=== PATIENT | male | born 1940 | race Caucasian/White ===

== ENCOUNTER 2017-08-13 05:12 | Inpatient (IN) | payer OTHER ==
[2017-08-10 11:31] VITALS: BMI 28.5
[~2017-08-13] VITALS: Ht 185.4 cm; Wt 97.2 kg
[2017-08-13] VITALS (20 sets, daily range): BP systolic 94–151; BP diastolic 53–91; PULSE 80–132; RESP 11–20; Ht 185.4 cm; Wt 97.2 kg
[~2017-08-13 05:12] MED LIST: LANS30CA PO; TAMS-14 PO; VALS80TA2 PO
[2017-08-13] MEDS ORDERED: CEFAZOLIN 2 GM/50 ML (PMX) 50 ML IVPB SCH (05:30)
[2017-08-13] MEDS ORDERED: LACTATED RINGER'S 1,000 ML IV* SCH (05:33)
[2017-08-13] MEDS ORDERED: NEOSTIGMINE 3 MG/3 ML SYRINGE ONE (06:55)
[2017-08-13] MEDS ORDERED: PROPOFOL 20 ML ONE (06:55)
[2017-08-13] MEDS ORDERED: GLYCOPYRROLATE 0.4 MG INJ ONE (06:55)
[2017-08-13] MEDS ORDERED: LIDOCAINE 2% (SDV) 5 ML INJ ONE (06:55)
[2017-08-13] MEDS ORDERED: ROCURONIUM 50 MG INJ ONE (06:55)
[2017-08-13] MEDS ORDERED: SUCCINYLCHOLINE CHLORIDE 100 MG/5 ML SYG IV ONE (06:55)
[2017-08-13] MEDS ORDERED: MEPERIDINE 100 MG INJ ONE (06:56)
[2017-08-13] MEDS ORDERED: THROMBIN 5000 UNIT VIAL ONE (06:57)
[2017-08-13] MEDS ORDERED: BUPIVACAINE 0.25% (MPF) 10 ML 10 ML VIAL ONE (06:57)
[2017-08-13] MEDS ORDERED: GELATIN SIZE 100 SPONGE ONE (06:57)
[2017-08-13] MEDS ORDERED: POLYMYXIN/BACITRACIN 1L IRRIG ONE (06:57)
--- NOTE | 2017-08-13 06:57 | HPN ---
Date/Time of Note Date/Time of Note DATE: 08/13/17 TIME: 06:56 Interval H&P Admission Note Pt. seen H&P reviewed: No system changes LUIGI TORO MD Aug 13, 2017 06:57
[2017-08-13] MEDS ORDERED: SEVOFLURANE 15 MIN ONE (08:00)
[2017-08-13] MEDS ORDERED: EPHEDrine SULFATE 50 MG/5 ML SYG ONE (08:00)
--- NOTE | 2017-08-13 09:41 | RADRPT ---
PROCEDURE: XR Lumbar Spine one view. CLINICAL INDICATION: Low back pain. Intraoperative. TECHNIQUE: Prone portable cross-table lateral. COMPARISON: No prior studies are available for comparison. FINDINGS: For the purposes of this report, the last apparent true disc level is considered to be L5-S1. Based on this, the posterior Needle marker is are present at L2 spinous process level and L5 spinous proc ess level. There are severe degenerative changes throughout. IMPRESSION: 1. Intraoperative imaging as described above. RPTAT: QQ .Humberto Carrillo MD, MD Date Time Electronically viewed and signed by .Humberto Carrillo MD, on 08/13/2017 09:41 .R/
--- NOTE | 2017-08-13 09:42 | RADRPT ---
PROCEDURE: XR Lumbar Spine one view. CLINICAL INDICATION: Low back pain. Intraoperative. TECHNIQUE: Prone portable cross-table lateral. COMPARISON: No prior studies are available for comparison. FINDINGS: For the purposes of this report, the last apparent true disc level is considered to be L5-S1. Based on this, the posterior Surgical instruments are present overlying the L2, L3, L4, and L5 spinous pr ocesses. There are severe degenerative changes throughout. IMPRESSION: 1. Intraoperative imaging as described above. RPTAT: QQ .Humberto Carrillo MD, MD Date Time Electronically viewed and signed by .Humberto Carrillo MD, on 08/13/2017 09:41 .R/
[2017-08-13] MEDS ORDERED: ONDANSETRON 4 MG INJ ONE ×2 (09:54→10:53)
[2017-08-13] MEDS ORDERED: HYDROmorphONE (0.2 MG/ML) 10ML SYG IV ONE (10:47)
[2017-08-13] MEDS ORDERED: ZOLPIDEM 5 MG TAB PO PRN (11:00)
[2017-08-13] MEDS ORDERED: ACETAMINOPHEN 325 MG TAB PO PRN (11:00)
[2017-08-13] MEDS ORDERED: hydrALAzine 20 MG INJ IV PRN (11:00)
[2017-08-13] MEDS ORDERED: MIDAZOLAM 1 MG/ML 2 ML INJ IV PRN (11:00)
[2017-08-13] MEDS ORDERED: NACL 0.9% 3 ML SYG IV SCH (11:00)
[2017-08-13] MEDS ORDERED: AL HYDROX/MG HYDROX/SIMETH 30 ML CUP PO PRN (11:00)
[2017-08-13] MEDS ORDERED: EPHEDrine SULFATE 50 MG/5 ML SYG IV PRN (11:00)
[2017-08-13] MEDS ORDERED: ONDANSETRON 4 MG INJ IV PRN ×2 (11:00)
[2017-08-13] MEDS ORDERED: METOCLOPRAMIDE 10 MG INJ IV PRN (11:00)
[2017-08-13] MEDS ORDERED: HYDROmorphONE (0.2 MG/ML) 10ML SYG IV PRN ×3 (11:00)
[2017-08-13] MEDS ORDERED: OXYCODONE/ACETAMINOPHEN (5/325) TAB PO PRN ×2 (11:00)
[2017-08-13] MEDS ORDERED: DIAZEPAM 5 MG TAB PO PRN (11:00)
[2017-08-13] MEDS ORDERED: MEPERIDINE 25 MG INJ IV PRN (11:00)
[2017-08-13] MEDS ORDERED: TRIMETHOBENZAMIDE 100 MG/ML VIAL IM PRN (11:00)
[2017-08-13] MEDS ORDERED: LABETALOL HCL 20MG INJ IV PRN (11:00)
[2017-08-13] MEDS ORDERED: DIAZEPAM 5 MG/ML SYG IM PRN (11:00)
[2017-08-13] MEDS ORDERED: DIPHENHYDRAMINE 50 MG CAP PO PRN (11:00)
[2017-08-13] MEDS ORDERED: NALOXONE (0.4 MG/ML) INJ IV PRN (11:00)
[2017-08-13] MEDS ORDERED: PROCHLORPERAZINE 10 MG TAB PO PRN (11:00)
[2017-08-13] MEDS ORDERED: CEPASTAT LOZENGE MT PRN (11:00)
[2017-08-13] MEDS ORDERED: DIPHENHYDRAMINE 50 MG INJ IV PRN (11:00)
[2017-08-13] MEDS ORDERED: FENTAnyl 50 MCG/ML VIAL IV PRN ×3 (11:00)
--- NOTE | 2017-08-13 11:01 | SIPON ---
Date/Time of Note Date/Time of Note DATE: 08/13/17 TIME: 10:53 Operative Report Preoperative Diagnosis Lumbar spinal stenosis L2-L5 Postoperative Diagnosis Same Operation/Procedure Performed Central decompressive laminectomy L2,L3, L4, and L5 Baxano transforaminal root decompression L5 right Medial facetectomy and foraminototmy L2-3, L3-4, L4-5, and L5-S1 bilaterally Cosmetic closure 13cm Lateral localizing lumbar radiographs (2) Intra-operative nerve monitoring (150 minutes) Surgeon see signature line assistant speech language pathologist: PHILIPPE LISA Estimated Blood Loss: 250 - 300 ml's Transfusion Required: no Specimens Spinous processes L2, L3, L4, and L5 Grafts/Implants: none Complications: no LUIGI TORO MD Aug 13, 2017 11:01
[2017-08-13] MEDS: HYDROmorphONE 0.2 MG/ML PCA IV SCH (11:07)
[2017-08-13] MEDS: DEXTROSE 5%-0.45% NACL 1,000 ML IV SCH ×2 (12:51→22:47)
[2017-08-13] MEDS: CEFAZOLIN 1 GM/50 ML (PMX) 50 ML IVPB SCH ×3 (12:52→23:57)
--- NOTE | 2017-08-13 14:58 | OPR ---
DATE OF OPERATION: 08/13/2017 PRE AND POSTOPERATIVE DIAGNOSIS: Multilevel spinal stenosis from L2-L5. OPERATION PERFORMED: On the 13 of August, the patient underwent the following procedures: 1. Central decompressive laminectomy, L2. 2. Central decompressive laminectomy, L3. 3. Central decompressive laminectomy at L4. 4. Central decompressive laminectomy, L5. 5. Baxano transforaminal root decompression, L5 on the right. 6. Medial facetectomy and foraminotomy, L2-3, L3-4, L4-5, and L5-S1 bilaterally. 7. Cosmetic wound closure (13 cm). 8. Lateral localizing lumbar radiographs (2). 9. Intraoperative nerve monitoring (2.5 hours). SURGEON: Alberto Robin MD TUBE HANDLER: Cynthia Quezada PA-C ANESTHESIA: General endotracheal by Dr. MAJO Champagne. ESTIMATED BLOOD LOSS: 250 cc - none replaced. DRAINS: Two medium Hemovac drains employed. COMPLICATIONS: No complications. INDICATIONS: This is a 77-year-old male who sustained injury to his back in the course of his employment on August 30, 1995. He has had extensive care over the years and remained symptomatic with persistent low back and bilateral leg pain, right greater than left, which has been unrelieved by conservative management. He has undergone a number of diagnostic studies, including an MRI of the lumbar spine, which demonstrates multilevel severe spinal stenosis from L2-L5 with foraminal stenosis as well. Treatment options discussed with the patient common with surgery. OPERATIVE FINDINGS AT SURGERY: Severe spinal stenosis at L2, L3, L4 and L5 confirmed. The baseline intraoperative nerve monitor revealed decrease in the right L2, potential 30 percent, the L3, potential on the right of 30 percent, the L4, potential on the right of 40 percent, the L5, potential on the right of 40 percent. These all returned to normal at the completion of the surgery. OPERATION PERFORMED: With the patient in supine position after satisfactory induction of general endotracheal anesthesia by Dr. MAJO Champagne, the patient was turned to the prone kneeling position onto the Kade frame. All pressure points carefully padded. The back was prepped and draped in usual sterile fashion. Athrombic pumps had been applied to the legs below the knees to prevent venous stasis during and after procedure. An indwelling Montoya catheter was also placed preoperatively to facilitate bladder drainage during and after the procedure. Two spinal needles were placed, felt to be next to be the spinous processes of L2 and L5. The lateral radiograms were taken, which confirmed anatomic localization. A 13-cm incision at midline, from L2 to the sacrum, through skin and subcutaneous tissue to the fascia, after the skin was infiltrated with 0.25-percent Marcaine without epinephrine for postoperative analgesia. Superficial retractors were placed. Hemostasis secured with electrocautery. Throughout the procedure, copious amounts of antibacterial irrigating solution used to periodically irrigate the wound. The fascia was incised in midline with a hot knife and a bilateral subperiosteal dissection carried out from L2 to the sacrum. Deep retractors were placed and deep hemostasis secured with electrocautery. A second intraoperative radiograph was taken with Blanka clamps placed and was felt to be the spinous processes of L2, L3, L4, and L5, and this was confirmed with the second x-ray. A central decompressive laminectomy at L5, L4, L3 and L2 was then carried out using a Karina right- angle bone rongeur, Leksell rongeur, Kerrison punch and curets. The ligamentum flava was excised with sharp dissection. The operating microscope was moved into place. A medial facetectomy and foraminotomy accomplished at L2-3, L3-4, L4-5 and L5-S1 bilaterally using a small hand osteotome, mallet, Kerrison punches and curettes. At this point, there still appeared to be some foraminal stenosis distally at L5-S1 on the right, compressing the exiting L5 nerve root, and the back saddle instrumentation was then brought onto the field. The Ipsi probe was placed into the L5 foramen and the guidewire passed in the usual fashion. A nerve probe was then used to isolate the exiting L5 nerve root. With this having been assured, the 7.5-mm Baxano shaver was placed into the foramen and multiple reciprocations carried out to enlarge the posterior aspect of the foramen. The instrumentation was withdrawn and 20 cc of irrigating solution was placed into the foramen, and a Valsalva maneuver was then performed by the anesthesiologist and no spinal fluid leakage was noted. The epidural hemostasis was secured with bipolar electrocautery on a low setting. The wound was then closed in layers over 2 medium Hemovac drains, one below the fascia, one above the fascia, using number 1 Vicryl figure-of- eight approximating suture in deep parietal musculature and deep fascia of the back, 2-0 Vicryl subcutaneous approximating sutures on the subcu tissues and a 4-0 Vicryl subcuticular cosmetic closing suture on the skin. Dermabond and sterile compressive dressings were applied. The patient tolerated the procedure well and was then turned in supine position onto his bed and extubated by Dr. MAJO Champagne. He was transported to the recovery room in a satisfactory condition. At the conclusion of the procedure, sponge, instrument and needle counts were all correct. NEED FOR RESPIRATORY CARE ASSISTANT: During this spinal surgical procedure, my mechanic assistant was used to retract and protect the spinal nerves and dural sac. My mechanic assistant also employed the suction catheters to evacuate blood from the surgical field to improve visualization of the neural structures. The mechanic assistant was medically necessary to facilitate the completion of the surgery in a safe and expeditious manner. [facility] [place] regulations, as well as hospital bylaws, preclude the use of non- licensed health care personnel such as operating room technicians, to perform these functions. Throughout the procedure, neuro monitoring was carried out by [employer], including EMG, SSEP and MEP monitoring of the L2, L3, L4, L5, and S1 nerve roots bilaterally along with spinal cord potentials. These were interpreted by a neurologist employed by [employer]. Dictated By: Alberto Robin MD /bora/agustín /Document#: [id number] CC: Colt Avila MD
--- NOTE | 2017-08-13 18:14 | CONS ---
Date/Time of Note Date/Time of Note DATE: 08/13/17 TIME: 18:06 Assessment/Plan Assessment/Plan Problems: (1) Essential hypertension Status: Chronic Comment: Continue his angiotensin II receptor oxana drug. This is been stable and well-tolerated. (2) BPH (benign prostatic hyperplasia) Status: Chronic Comment: Continue alpha-oxana drug therapy with tamsulosin Qualifiers: Qualified Code: N40.1 - Benign prostatic hyperplasia with urinary hesitancy (3) Osteoarthritis Status: Chronic Comment: Noted and stable. He should have adequate rehabilitation potential as we go through the process Qualifiers: Qualified Code: M15.0 - Primary osteoarthritis involving multiple joints (4) Lumbar spinal stenosis Status: Chronic Comment: Postop without any apparent complications at this time (5) Status post lumbar laminectomy Status: Acute Comment: Postop observe for recovery (6) Polycythemia rubra vera Status: Chronic Comment: Noted check CBC (7) Chronic kidney disease, stage II (mild) Status: Chronic Comment: Noted, followed carefully Consultation Date/Type/Reason Admit Date/Time Aug 13, 2017 at 05:12 Date of Consultation: Aug 13, 2017 Type of Consultation: Internal medicine Reason for Consultation Postoperative assistance after significant lumbar spinal surgery Referring Provider: LUIGI TORO MD Hx of Present Illness Charming 77-year-old male who was brought in electively for lumbar spinal surgery. He lives a few hours away from [facility] and had his preop by his regular family doctor which is in the chart. Constitutional: no complaints (No fevers chills or sweats) ENT: no complaints Respiratory: no complaints Cardiovascular: no complaints Gastrointestinal: no complaints Genitourinary: no complaints Musculoskeletal: back pain Skin: no complaints Neurologic: other (Complains of left foot numbness which she had before surgery ) Endocrine: no complaints Lymphatic: no complaints Psychological: nl mood/affect, no complaints Past Medical History 1) lumbar spinal stenosis, 2) essential hypertension, 3) BPH 4) chronic kidney disease to 5) polycythemia 6) osteoarthritis Medications; tamsulosin 0.4 mg nightly, valsartan 80 mg daily, Prevacid 30 mg p.o. 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 [facility] Exam/Review of Systems Vital Signs Vitals Vital Signs Date Time Temp Pulse Resp B/P Pulse Ox O2 Delivery O2 Flow Rate FiO2 08/13/17 11:28 86 17 113/64 98 Nasal Cannula 08/13/17 11:13 2.0 08/13/17 10:45 98.0 Exam Constitutional: alert, oriented Eyes: EOMI, nl conjunctiva, nl lids, nl sclera Neck: non-tender, supple Respiratory: clear to auscultation, normal air movement Cardiovascular: nl pulses, regular rate and rhythm Gastrointestinal: nl liver, spleen, non-tender, soft Extremities: normal pulses Neurological: ASSET RECOVERY SPECIALIST II-XII intact, nl mental status, nl speech, nl strength Medications Medications Current Medications Dextrose/Sodium Chloride (D5-1/2ns) 1,000 ml @ 100 mls/hr Q10H IV Last administered on 08/13/17 12:51; Admin Dose 100 MLS/HR; Start 08/13/17 at 10:49 Acetaminophen/ Hydrocodone Bitart ([place] (5/325)) 1 tab Q4H PRN PO PAIN LEVEL 1 -5; Start 08/13/17 at 11:00 Acetaminophen/ Hydrocodone Bitart 2 tab 2 tab Q4H PRN PO PAIN LEVEL 6-10; Start 08/13/17 at 11:00 Cefazolin Sodium (Ancef 1 Gm/50 ml (Pmx)) 50 ml @ 100 mls/hr Q6 IVPB Last administered on 08/13/17 12:52; Admin Dose 100 MLS/HR; Start 08/13/17 at 12:00 ; Stop 08/14/17 at 06:29 Zolpidem Tartrate (Ambien) 5 mg HS PRN PO INSOMNIA; Start 08/13/17 at 11:00 Prochlorperazine (Compazine) 10 mg Q4H PRN PO NAUSEA AND/OR VOMITING; Start at 11:00 Trimethobenzamide HCl (Tigan) 200 mg Q4H PRN IM NAUSEA AND/OR VOMITING; Start 08/13/17 at 11:00 Ondansetron HCl (Zofran Inj) 4 mg Q6H PRN IV NAUSEA AND/OR VOMITING; Start at 11:00 Al Hydrox/Mg Hydrox/Simethicone (Mag-Al Plus) 15 ml Q4H PRN PO CONSTIPATION; Start 08/13/17 at 11:00 Docusate Sodium (Colace) 100 mg BID PO ; Start 08/14/17 at 09:00 Acetaminophen (Tylenol Tab) 650 mg Q4H PRN PO TEMP GREATER THAN 101F OR MAHMOOD; Start 08/13/17 at 11:00 Ascorbic Acid (Vitamin C) 1,000 mg BID PO ; Start 08/14/17 at 09:00 Ferrous Sulfate (Ferrous Sulfate (Ec)) 325 mg TID PO ; Start 08/14/17 at 09:00 Ranitidine HCl (Zantac) 150 mg BID PO ; Start 08/13/17 at 21:00 Diazepam (Valium) 5 mg Q4H PRN PO MUSCLE SPASMS; Start 08/13/17 at 11:00 Diazepam (Valium) 5 mg Q4H PRN IM MUSCLE SPASMS; Start 08/13/17 at 11:00 Phenol (Cepastat Lozenge) 1 lozenge PRN PRN MT SORE THROAT; Start 08/13/17 at 11:00 Bethanechol Chloride (Urecholine) 25 mg PRN PRN PO UNABLE TO VOID; Start at 11:00 Diphenhydramine HCl (Benadryl) 50 mg Q6H PRN PO PRURITUS; Start 08/13/17 at 11: 00 Hydromorphone HCl (Dilaudid HOUSE SHORER) Q4PCA IV Last administered on 08/13/17t 11:07 ; Admin Dose 6 MG; Start 08/13/17 at 11:00 Naloxone HCl (Narcan) 0.2 mg Q2M PRN IV RR 8 BREATHS/MIN OR LESS; Start at 11:00 VALARIE JORDAN MD Aug 13, 2017 18:14
[2017-08-13] MEDS: RANITIDINE 150 MG TAB PO SCH (20:34)
[2017-08-13] MEDS: TAMSULOSIN (SR) 0.4 MG CAP PO SCH (20:34)
[2017-08-14 00:15] VITALS: BP 123/62; RESP 18
[2017-08-14] MEDS: CEFAZOLIN 1 GM/50 ML (PMX) 50 ML IVPB SCH (05:05)
[2017-08-14] MEDS: HYDROmorphONE 0.2 MG/ML PCA IV SCH (05:17)
[2017-08-14 05:24] LABS: HEMATOCRIT 43.4 % (42.0-52.0); HEMOGLOBIN 14.3 g/dl (14.0-18.0)
[2017-08-14 05:38] LABS: CALCIUM 8.5 mg/dl (8.4-10.2); CREATININE 1.02 mg/dl (0.61-1.24); POTASSIUM 4.5 mmol/L (3.5-5.1)
[2017-08-14] MEDS: DEXTROSE 5%-0.45% NACL 1,000 ML IV SCH ×2 (06:49→16:49)
--- NOTE | 2017-08-14 07:07 | PN ---
Date/Time of Note Date/Time of Note DATE: 08/14/17 TIME: 07:02 Assessment/Plan Lines/Catheters IV Catheter Type (from Nrsg): Peripheral IV Valladares in Place (from Nrsg): Yes Subjective 24 Hr Interval Summary Pt is POD #1 following multilevel lumbar decompression. His leg pain and numbness are improving. Back pain is well controlled. He has been up ambulating with PT. VS are stable and he is afebrile. Hgb this am is 14.3. Hemovac drain output was 270cc overnight and this will be kept in, we will continue to monitor it. Plan for today is to progress walking, remove valladares and d/c ASSISTANT CLINICAL NURSE MANAGER. Exam/Review of Systems Vital Signs Vitals Vital Signs Date Time Temp Pulse Resp B/P Pulse Ox O2 Delivery O2 Flow Rate FiO2 08/14/17 05:19 20 08/14/17 00:15 98.0 68 123/62 99 08/13/17 20:00 Nasal Cannula 2.0 Intake and Output 08/13/17 08/13/17 08/14/17 15:00 23:00 07:00 Intake Total 4550 ml 1750 ml 1320 ml Output Total 340 ml 1375 ml 2670 ml Balance 4210 ml 375 ml -1350 ml Results Result Diagram: 08/14/17 0457 08/14/17 0457 PHILIPPE LISA Aug 14, 2017 07:07
[2017-08-14] MEDS ORDERED: BETHANECHOL 25 MG TAB PO PRN (08:00)
[2017-08-14 08:10] VITALS: BP 155/78; RESP 18
--- NOTE | 2017-08-14 08:30 | PN ---
Date/Time of Note Date/Time of Note DATE: 08/14/17 TIME: 08:26 Assessment/Plan VTE Prophylaxis VTE Prophylaxis Intervention: SCD's Lines/Catheters IV [facility]from [facility] Peripheral IV Urinary Cath still in place: Yes Reason Cath still needed: urinary retention Assessment/Plan Chief Complaint/Hosp Course Lakeisha 77-year-old male who was brought in electively for lumbar spinal surgery. He lives a few hours away from [facility] and had his preop by his regular family doctor which is in the chart. Problems: (1) Status post lumbar laminectomy Onset Date: ~ 08/13/2017 Status: Acute Comment: Recuperating nicely after surgery. Assuming everything goes well he has excellent rehabilitation potential due to being a pretty robust gentleman preop. In addition he is very devoted toward getting better. Continue with physical therapy. Plan is for discharge home. (2) BPH (benign prostatic hyperplasia) Status: Chronic Comment: Adequate control. Remove Montoya catheter today Qualifiers: Lower urinary tract symptom presence: symptoms present Lower urinary tract symptom detail: urinary hesitancy Qualified Code: N40.1 - Benign prostatic hyperplasia with urinary hesitancy (3) Chronic kidney disease, stage II (mild) Status: Chronic Comment: Stable. Renal function is more than adequate (4) Polycythemia rubra vera Status: Chronic Comment: Stable postop. Subjective 24 Hr Interval Summary Free Text/Dictation Patient reports he is feeling better although he has noticed that with his incentive spirometer he does not have as deep of breath as he did yesterday. No shortness of breath no chest pain Constitutional: no complaints Cardiovascular: no complaints Gastrointestinal: no complaints Genitourinary: no complaints Exam/Review of Systems Vital Signs Vitals Vital Signs Date Time Temp Pulse Resp B/P Pulse Ox O2 Delivery O2 Flow Rate FiO2 08/14/17 08:10 98.8 77 18 155/78 99 08/13/17 20:00 Nasal Cannula 2.0 Intake and Output 08/13/17 08/13/17 08/14/17 15:00 23:00 07:00 Intake Total 4550 ml 1750 ml 1320 ml Output Total 340 ml 1375 ml 2670 ml Balance 4210 ml 375 ml -1350 ml Exam Constitutional: alert, oriented Neck: non-tender, supple Respiratory: clear to auscultation, normal air movement Cardiovascular: nl pulses, regular rate and rhythm Gastrointestinal: nl liver, spleen, non-tender, soft Results Result Diagram: 08/14/17 0457 08/14/17 0457 Results 24 hrs Laboratory Tests Test 08/14/17 04:57 Hemoglobin 14.3 Hematocrit 43.4 Sodium Level 136 Potassium Level 4.5 Chloride Level 103 Carbon Dioxide Level 30 Anion Gap 8 Blood Urea Nitrogen 14 Creatinine 1.02 Glucose Level 167 Calcium Level 8.5 Medications Medications Current Medications Dextrose/Sodium Chloride (D5-1/2ns) 1,000 ml @ 100 mls/hr Q10H IV Last administered on 08/13/17t 22:47; Admin Dose 100 MLS/HR; Start 08/13/17 at 10:49 Acetaminophen/ Hydrocodone Bitart ([place] (5/325)) 1 tab Q4H PRN PO PAIN LEVEL 1 -5; Start 08/13/17 at 11:00 Acetaminophen/ Hydrocodone Bitart ([place] (5/325)) 2 tab Q4H PRN PO PAIN LEVEL 6 -10; Start 08/13/17 at 11:00 Zolpidem Tartrate (Ambien) 5 mg HS PRN PO INSOMNIA; Start 08/13/17 at 11:00 Prochlorperazine (Compazine) 10 mg Q4H PRN PO NAUSEA AND/OR VOMITING; Start at 11:00 Trimethobenzamide HCl (Tigan) 200 mg Q4H PRN IM NAUSEA AND/OR VOMITING; Start 08/13/17 at 11:00 Ondansetron HCl (Zofran Inj) 4 mg Q6H PRN IV NAUSEA AND/OR VOMITING; Start at 11:00 Al Hydrox/Mg Hydrox/Simethicone (Mag-Al Plus) 15 ml Q4H PRN PO CONSTIPATION; Start 08/13/17 at 11:00 Docusate Sodium (Colace) 100 mg BID PO ; Start 08/14/17 at 09:00 Acetaminophen (Tylenol Tab) 650 mg Q4H PRN PO TEMP GREATER THAN 101F OR MAHMOOD; Start 08/13/17 at 11:00 Ascorbic Acid (Vitamin C) 1,000 mg BID PO ; Start 08/14/17 at 09:00 Ferrous Sulfate (Ferrous Sulfate (Ec)) 325 mg TID PO ; Start 08/14/17 at 09:00 Ranitidine HCl (Zantac) 150 mg BID PO Last administered on 08/13/17 20:34; Admin Dose 150 MG; Start 08/13/17 at 21:00 Diazepam (Valium) 5 mg Q4H PRN PO MUSCLE SPASMS; Start 08/13/17 at 11:00 Diazepam (Valium) 5 mg Q4H PRN IM MUSCLE SPASMS; Start 08/13/17 at 11:00 Phenol (Cepastat Lozenge) 1 lozenge PRN PRN MT SORE THROAT Last administered on 08/14/17 05:13; Admin Dose 1 LOZENGE; Start 08/13/17 at 11:00 Bethanechol Chloride (Urecholine) 25 mg PRN PRN PO UNABLE TO VOID; Start at 11:00 Diphenhydramine HCl (Benadryl) 50 mg Q6H PRN PO PRURITUS; Start 08/13/17 at 11: 00 Hydromorphone HCl (Dilaudid NETWORK OPERATIONS SPECIALIST) Q4PCA IV Last administered on 08/14/17 05:17 ; Admin Dose 6 MG; Start 08/13/17 at 11:00 Naloxone HCl (Narcan) 0.2 mg Q2M PRN IV RR 8 BREATHS/MIN OR LESS; Start at 11:00 Tamsulosin HCl (Flomax) 0.4 mg HS PO Last administered on 08/13/17 20:34; Admin Dose 0.4 MG; Start 08/13/17 at 21:00 Valsartan (Diovan) 80 mg DAILY PO ; Start 08/14/17 at 09:00 Bethanechol Chloride (Urecholine) 25 mg PRN PRN PO UNABLE TO VOID; Start at 08:00 VALARIE JORDAN MD Aug 14, 2017 08:30
[2017-08-14] MEDS ORDERED: LANSOPRAZOLE 30 MG CAP PO SCH (09:00)
[2017-08-14] MEDS: VALSARTAN 80 MG TAB PO SCH (09:33)
[2017-08-14] MEDS: FERROUS SULFATE (EC) 325 MG TAB PO SCH ×3 (09:33→20:55)
[2017-08-14] MEDS: RANITIDINE 150 MG TAB PO SCH ×2 (09:34→20:55)
[2017-08-14] MEDS: DOCUSATE SODIUM 100 MG CAP PO SCH ×2 (09:34→20:55)
[2017-08-14] MEDS: ASCORBIC ACID 500 MG TAB PO SCH ×2 (09:35→20:56)
[2017-08-14] MEDS: BETHANECHOL 25 MG TAB PO PRN ×2 (11:14→19:49)
[2017-08-14] MEDS: HYDROCODONE/APAP (5/325) TAB PO PRN ×3 (11:14→19:49)
[2017-08-14 16:01] VITALS: BP 131/61; RESP 18
[2017-08-14 19:15] VITALS: BP 132/63; RESP 20
[2017-08-14] MEDS: TAMSULOSIN (SR) 0.4 MG CAP PO SCH (20:55)
[2017-08-14 22:27] LABS: ADD UMIC YES; UR ASCORBIC ACID NEGATIVE (NEGATIVE); UR BILIRUBIN (Dip) NEGATIVE (NEGATIVE); UR BLOOD (Dip) 3+ mg/dL (NEGATIVE); UR CLARITY CLEAR (CLEAR); UR COLOR YELLOW (YELLOW); UR GLUCOSE (Dip) NEGATIVE (NEGATIVE); UR KETONES (Dip) NEGATIVE (NEGATIVE); UR LEUKOCYTE ESTERASE (Dip) NEGATIVE Leu/ul (NEGATIVE); UR NITRITE (Dip) NEGATIVE (NEGATIVE); UR RBC > 182 /HPF (0-5); UR SPECIFIC GRAVITY (Dip) 1.011 (1.003-1.030); UR TOTAL PROTEIN (Dip) NEGATIVE (NEGATIVE); UR UROBILINOGEN (Dip) NEGATIVE (NEGATIVE)
[2017-08-15] MEDS: HYDROCODONE/APAP (5/325) TAB PO PRN ×4 (01:49→12:51)
[2017-08-15] MEDS: DEXTROSE 5%-0.45% NACL 1,000 ML IV SCH (01:49)
[2017-08-15 02:00] VITALS: BP 122/64; RESP 18
--- NOTE | 2017-08-15 06:55 | PN ---
Date/Time of Note Date/Time of Note DATE: 08/15/17 TIME: 06:54 Assessment/Plan Lines/Catheters IV Catheter Type (from Nrsg): Saline Lock Montoya in Place (from Nrsg): No Subjective 24 Hr Interval Summary The patient is postop day #2 following a 4 level decompressive laminectomy from L2-L5. Resting comfortably in bed. Neurovascular structures are intact distally. A.m. labs are unremarkable. Has a low-grade temp (99.6). Hemovac had minimal drainage and was discontinued. Wound is clean and dry and was redressed. Anticipate he will be cleared for discharge by physical therapy later today. I have given him strict discharge precautions and instructions as well as follow-up arrangements. Exam/Review of Systems Vital Signs Vitals Vital Signs Date Time Temp Pulse Resp B/P Pulse Ox O2 Delivery O2 Flow Rate FiO2 08/15/17 02:00 98.5 90 18 122/64 93 08/13/17 20:00 Nasal Cannula 2.0 Intake and Output 08/14/17 08/14/17 08/15/17 15:00 23:00 07:00 Intake Total 1220 ml 550 ml Output Total 1070 ml 600 ml Balance 150 ml -50 ml Results Result Diagram: 08/14/17 0457 08/14/17 0457 LUIGI TORO MD Aug 15, 2017 06:55
[2017-08-15 08:10] VITALS: BP 126/73; RESP 16
--- NOTE | 2017-08-15 09:14 | PN ---
Date/Time of Note Date/Time of Note DATE: 08/15/17 TIME: 09:12 Assessment/Plan VTE Prophylaxis VTE Prophylaxis Intervention: SCD's Lines/Catheters IV [facility]ter [facility]from [facility] Saline Lock Urinary Cath still in place: No Assessment/Plan Chief Complaint/Hosp Course Lakeisha 77-year-old male who was brought in electively for lumbar spinal surgery. He lives a few hours away from [facility] and had his preop by his regular family doctor which is in the chart. Problems: (1) Status post lumbar laminectomy Onset Date: ~ 08/13/2017 Status: Acute Comment: He is recuperating nicely and should be able to be discharged later today physical therapy clears him. This will be a late discharge probably right around 6 PM (2) BPH (benign prostatic hyperplasia) Status: Chronic Comment: Adequate control on current medication Regimen Qualifiers: Lower urinary tract symptom presence: symptoms present Lower urinary tract symptom detail: urinary hesitancy Qualified Code: N40.1 - Benign prostatic hyperplasia with urinary hesitancy (3) Chronic kidney disease, stage II (mild) Status: Chronic Comment: Stable and no intervention indicated (4) Polycythemia rubra vera Status: Chronic Comment: Stable blood counts (5) Essential hypertension Status: Chronic Comment: Adequate control on current medication regimen Subjective 24 Hr Interval Summary Free Text/Dictation Pleasant gentleman sitting in bed reports no chest pain no shortness of breath no nausea vomiting. Is having back pain but is working actively with physical therapy Constitutional: no complaints Respiratory: no complaints Cardiovascular: no complaints Gastrointestinal: no complaints Genitourinary: no complaints Exam/Review of Systems Vital Signs Vitals Vital Signs Date Time Temp Pulse Resp B/P Pulse Ox O2 Delivery O2 Flow Rate FiO2 08/15/17 08:10 97.3 91 16 126/73 93 08/13/17 20:00 Nasal Cannula 2.0 Intake and Output 08/14/17 08/14/17 08/15/17 15:00 23:00 07:00 Intake Total 1220 ml 550 ml Output Total 1070 ml 600 ml Balance 150 ml -50 ml Exam Constitutional: alert, oriented Respiratory: clear to auscultation, normal air movement Cardiovascular: nl pulses, regular rate and rhythm Gastrointestinal: nl liver, spleen, non-tender, soft Results Result Diagram: 08/14/17 0457 08/14/17 0457 Results 24 hrs Laboratory Tests Test 08/14/17 11:15 Urine Color YELLOW Urine Clarity CLEAR Urine pH 5.0 Urine Specific Hollis 1.011 Urine Ketones NEGATIVE Urine Nitrite NEGATIVE Urine Bilirubin NEGATIVE Urine Urobilinogen NEGATIVE Urine Leukocyte Esterase NEGATIVE Urine Microscopic RBC > 182 H Urine Microscopic WBC 3 Urine Hemoglobin 3+ H Urine Glucose NEGATIVE Urine Total Protein NEGATIVE Medications Medications Current Medications Dextrose/Sodium Chloride (D5-1/2ns) 1,000 ml @ 100 mls/hr Q10H IV Last administered on 08/13/17 22:47; Admin Dose 100 MLS/HR; Start 08/13/17 at 10:49 Acetaminophen/ Hydrocodone Bitart (Saffell (5/325)) 1 tab Q4H PRN PO PAIN LEVEL 1 -5 Last administered on 08/15/17 04:44; Admin Dose 1 TAB; Start 08/13/17 at 11: 00 Acetaminophen/ Hydrocodone Bitart (Saffell (5/325)) 2 tab Q4H PRN PO PAIN LEVEL 6 -10 Last administered on 08/14/17 19:49; Admin Dose 2 TAB; Start 08/13/17 at 11 :00 Zolpidem Tartrate (Ambien) 5 mg HS PRN PO INSOMNIA; Start 08/13/17 at 11:00 Prochlorperazine (Compazine) 10 mg Q4H PRN PO NAUSEA AND/OR VOMITING; Start at 11:00 Trimethobenzamide HCl (Tigan) 200 mg Q4H PRN IM NAUSEA AND/OR VOMITING; Start 08/13/17 at 11:00 Ondansetron HCl (Zofran Inj) 4 mg Q6H PRN IV NAUSEA AND/OR VOMITING; Start at 11:00 Al Hydrox/Mg Hydrox/Simethicone (Mag-Al Plus) 15 ml Q4H PRN PO CONSTIPATION; Start 08/13/17 at 11:00 Docusate Sodium (Colace) 100 mg BID PO Last administered on 08/14/17 20:55; Admin Dose 100 MG; Start 08/14/17 at 09:00 Acetaminophen (Tylenol Tab) 650 mg Q4H PRN PO TEMP GREATER THAN 101F OR MAHMOOD; Start 08/13/17 at 11:00 Ascorbic Acid (Vitamin C) 1,000 mg BID PO Last administered on 08/14/17 20:56 ; Admin Dose 1,000 MG; Start 08/14/17 at 09:00 Ferrous Sulfate (Ferrous Sulfate (Ec)) 325 mg TID PO Last administered on 20:55; Admin Dose 325 MG; Start 08/14/17 at 09:00 Ranitidine HCl (Zantac) 150 mg BID PO Last administered on 08/14/17 20:55; Admin Dose 150 MG; Start 08/13/17 at 21:00 Diazepam (Valium) 5 mg Q4H PRN PO MUSCLE SPASMS; Start 08/13/17 at 11:00 Diazepam (Valium) 5 mg Q4H PRN IM MUSCLE SPASMS; Start 08/13/17 at 11:00 Phenol (Cepastat Lozenge) 1 lozenge PRN PRN MT SORE THROAT Last administered on 08/14/17 05:13; Admin Dose 1 LOZENGE; Start 08/13/17 at 11:00 Bethanechol Chloride (Urecholine) 25 mg PRN PRN PO UNABLE TO VOID Last administered on 08/14/17 19:49; Admin Dose 25 MG; Start 08/13/17 at 11:00 Diphenhydramine HCl (Benadryl) 50 mg Q6H PRN PO PRURITUS; Start 08/13/17 at 11: 00 Hydromorphone HCl (Dilaudid [employer]) Q4PCA IV Last administered on 08/14/17 05:17 ; Admin Dose 6 MG; Start 08/13/17 at 11:00 Naloxone HCl (Narcan) 0.2 mg Q2M PRN IV RR 8 BREATHS/MIN OR LESS; Start at 11:00 Tamsulosin HCl (Flomax) 0.4 mg HS PO Last administered on 08/14/17 20:55; Admin Dose 0.4 MG; Start 08/13/17 at 21:00 Valsartan (Diovan) 80 mg DAILY PO Last administered on 08/14/17 09:33; Admin Dose 80 MG; Start 08/14/17 at 09:00 Bethanechol Chloride (Urecholine) 25 mg PRN PRN PO UNABLE TO VOID; Start at 08:00 VALARIE JORDAN MD Aug 15, 2017 09:14
[2017-08-15] MEDS: VALSARTAN 80 MG TAB PO SCH (09:39)
[2017-08-15] MEDS: DOCUSATE SODIUM 100 MG CAP PO SCH (09:40)
[2017-08-15] MEDS: ASCORBIC ACID 500 MG TAB PO SCH (09:40)
[2017-08-15] MEDS: FERROUS SULFATE (EC) 325 MG TAB PO SCH ×2 (09:40→12:52)
[2017-08-15] MEDS: RANITIDINE 150 MG TAB PO SCH (09:40)
== END 2017-08-15 19:22 | disposition home or self-care (01) | DRG 517 ==
LOC: REC 05:12 → MS1 12:05
PROVIDERS: ADMIT Orthopaedic Surgery; ATTEND Orthopaedic Surgery
PROC: 01NB0ZZ Release Lumbar Nerve, Open Approach (ICD-10-PCS; principal; 2017-08-13 07:00)
DX: M48.07 Spinal stenosis, lumbosacral region (principal); D45 Polycythemia vera; M19.90 Unspecified osteoarthritis, unspecified site; I12.9 Hypertensive chronic kidney disease with stage 1 through stage 4 chronic kidney disease, or unspecified chronic kidney disease; N18.2 Chronic kidney disease, stage 2 (mild); Z87.891 Personal history of nicotine dependence; N40.1 Benign prostatic hyperplasia with lower urinary tract symptoms; R39.11 Hesitancy of micturition
CPT/HCPCS: 72020; 80048; 81001; 85014; 85018; 86850; 86900; 86901; 86920; 87086; 97116; 97163; 97530; J0690; J1170; J2175; J2405; J2710; J7042; J7999